=== PATIENT | female | born 1945 | race Hispanic/Latino ===

== ENCOUNTER 2019-05-30 11:56 | Emergency (ER) | payer OTHER ==
--- OUTSIDE RECORDS SUMMARY | 2019-05-30 11:58 | XMS REPORT ---
:1945 Author Organization [facility] Address [address] [place] [address] Dr. Amaya [address] [place] [id number] Care Team Providers Name Role Phone Unavailable Unavailable Unavailable Problems This patient has no known problems. Allergies, Adverse Reactions, Alerts This patient has no known allergies or adverse reactions. Medications This patient has no known medications.
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
[2019-05-30 13:37] VITALS: BP 141/66; TEMP 97.6; O2SAT 96
== END 2019-05-30 13:33 | disposition home or self-care (01) ==
LOC: ER 11:56
DX: T21.22XA Burn of second degree of abdominal wall, initial encounter (principal); T31.0 Burns involving less than 10% of body surface; X10.0XXA Contact with hot drinks, initial encounter; Y93.89 Activity, other specified; Y92.9 Unspecified place or not applicable; Z91.09 Other allergy status, other than to drugs and biological substances; Z91.018 Allergy to other foods; E11.9 Type 2 diabetes mellitus without complications; I10 Essential (primary) hypertension
CPT/HCPCS: 99282

== ENCOUNTER 2021-06-10 19:38 | Observation (INO) | payer OTHER ==
--- OUTSIDE RECORDS SUMMARY | 2021-06-10 19:40 | XMS REPORT | Continuity of Care Document ---
:1945 Author Organization [facility] t Address [facility] [address] [place] [address] Care Team Providers Name Role Phone CONNOR LEONARD Attending Clinician Unavailable MARYCRUZ BALES Attending Clinician Unavailable MD RUBIN MURPHY Attending Clinician Unavailable Lab, Fam Pob I Attending Clinician Unavailable Jhon ROSSI Attending Clinician JHON Attending Clinician Unavailable Doctor Unassigned, Name Attending Clinician Unavailable ARIELLA RAMIRES Attending Clinician Unavailable LES Attending Clinician Unavailable JANEL Attending Clinician Unavailable Lab, Covid Attending Clinician Unavailable BHARAT Attending Clinician Unavailable Bharat CARD SERVICES SPECIALIST Attending Clinician Raju_P Attending Clinician Unavailable JEFFREY Admitting Clinician Unavailable MD LAUREN MURPHY Admitting Clinician Unavailable North Admitting Clinician Unavailable Payers Payer Name Policy Type Policy Number Effective Date Expiration Date S ource MEDICARE [place]: [id number] 2010 [employer] ([employer]) 00:00:00 AETNA [id number] 2000 00:00:00 Problems Condition Condition Condition Status Onset Resolution Last Treating Co mments Source Name Details Category Date Date Treatment Clinician Date Hand pain, Hand pain, Disease Active U nivers right right 4-15 ity of 00:00: [place] [facility] Shoulder Shoulder Disease Active Unive rs pain, left pain, left 4-15 it y of 00:00: [place] [facility] Anxiety Anxiety Disease Active Univers attack attack 2-27 ity of 00:00: [place] [facility] Allergies, Adverse Reactions, Alerts Allergy Allergy Status Severity Reaction(s) Onset Inactive Treating Comm ents Source Name Type Date Date Clinician Honey Propensi Active Hives Univers ty to 5-18 ity of adverse 00:00: [place] reaction 00 Medical s Branch HONEY DRUG Active Hives 2017- Univers INGREDI 5-18 ity of 00:00: [place] 00 [facility] Iodine Propensi Active Itching 2015- Univers ty to 4-06 ity of adverse 00:00: [place] reaction 00 Medical s Branch IODINE DRUG Active ITCHING 2015- Univers INGREDI 4-06 ity of 00:00: [place] 00 [facility] Social History Social Habit Start Date Stop Date Quantity Comments Source Exposure to Yes [facility] SARS-CoV-2 [place] [facility] (event) Branch Tobacco use and 2017-12-10 2017-12-10 Never used Universit y of exposure 00:00:00 00:00:00 [facility] Branch Alcohol intake 2017-12-10 2017-12-10 Current University of 00:00:00 00:00:00 non-drinker of [facility] alcohol Branch (finding) Sex Assigned At [birth year] Universit y of 00:00:00 00:00:00 [facility] Branch Smoking Status Start Date Stop Date Source Never smoker [facility] Medications Ordered Filled Start Stop Current Ordering Indication Dosage Frequency Signature Comments Components Source Medication Medication Date Date Medication? Clinician (SIG) Name Name diclofenac 2019-0 Yes 50mg Take 1 Unive rs 50 mg 2-06 tablet by ity of tablet 00:00: mouth 3 (three) Medical times Branch daily. diclofenac 2019-0 Yes 50mg Take 1 Unive rs 50 mg 2-06 tablet by ity of tablet 00:00: mouth 3 (three) Medical times Branch daily. diclofenac 2019-0 Yes 50mg Take 1 Unive rs 50 mg 2-06 tablet by ity of tablet 00:00: mouth 3 [place] (three) Medical times Branch daily. diclofenac 2019-0 Yes 50mg Take 1 Unive rs 50 mg 2-06 tablet by ity of tablet 00:00: mouth 3 [place] (three) Medical times Branch daily. diclofenac 2019-0 Yes 50mg Take 1 Unive rs 50 mg 2-06 tablet by ity of tablet 00:00: mouth 3 [place] (three) Medical times Branch daily. diclofenac 2019-0 Yes 50mg Take 1 Unive rs 50 mg 2-06 tablet by ity of tablet 00:00: mouth 3 [place] (three) Medical times Branch daily. fexofenadin 2018-0 Yes 180mg Take 180 U nivers e (ALLERGY 6-20 mg by ity of RELIEF, 15:25: mouth [place] FEXOFENADIN 35 daily. Medica l E,) 180 mg Branch tablet fexofenadin 2018-0 Yes 180mg Take 180 U nivers e (ALLERGY 6-20 mg by ity of RELIEF, 15:25: mouth [place] FEXOFENADIN 35 daily. Medica l E,) 180 mg Branch tablet fexofenadin 2018-0 Yes 180mg Take 180 U nivers e (ALLERGY 6-20 mg by ity of RELIEF, 15:25: mouth [place] FEXOFENADIN 35 daily. Medica l E,) 180 mg Branch tablet fexofenadin 2018-0 Yes 180mg Take 180 U nivers e (ALLERGY 6-20 mg by ity of RELIEF, 15:25: mouth [place] FEXOFENADIN 35 daily. Medica l E,) 180 mg Branch tablet fexofenadin 2017-0 Yes 180mg Take 180 U nivers e (ALLERGY 6-20 mg by ity of RELIEF, 15:25: mouth [place] FEXOFENADIN 35 daily. Medica l E,) 180 mg Branch tablet fexofenadin 2017-0 Yes 180mg Take 180 U nivers e (ALLERGY 6-20 mg by ity of RELIEF, 15:25: mouth [place] FEXOFENADIN 35 daily. Medica l E,) 180 mg Branch tablet escitalopra 2015-0 Yes 20mg Take 20 mg Univers m oxalate 3-15 by mouth ity of (LEXAPRO) 00:00: daily. [place] 20 mg 00 Medical tablet Branch losartan-hy 2015-0 Yes 1{tbl} Take 1 Tab Univers drochloroth 3-15 by mouth. ity of iazide 00:00: [place] (HYZAAR) 00 Medical 100-25 mg Branch per tablet escitalopra 2015-0 Yes 20mg Take 20 mg Univers m oxalate 3-15 by mouth ity of (LEXAPRO) 00:00: daily. [place] 20 mg 00 Medical tablet Branch losartan-hy 2015-0 Yes 1{tbl} Take 1 Tab Univers drochloroth 3-15 by mouth. ity of iazide 00:00: [place] (HYZAAR) 00 Medical 100-25 mg Branch per tablet escitalopra 2015-0 Yes 20mg Take 20 mg Univers m oxalate 3-15 by mouth ity of (LEXAPRO) 00:00: daily. [place] 20 mg 00 Medical tablet Branch losartan-hy 20160 Yes 1{tbl} Take 1 Tab Univers drochloroth 3-15 by mouth. ity of iazide 00:00: [place] (HYZAAR) 00 Medical 100-25 mg Branch per tablet escitalopra 2016-0 Yes 20mg Take 20 mg Univers m oxalate 3-15 by mouth ity of (LEXAPRO) 00:00: daily. [place] 20 mg 00 Medical tablet Branch losartan-hy 0 Yes 1{tbl} Take 1 Tab Univers drochloroth 3-15 by mouth. ity of iazide 00:00: [place] (HYZAAR) 00 Medical 100-25 mg Branch per tablet escitalopra 20160 Yes 20mg Take 20 mg Univers m oxalate 3-15 by mouth ity of (LEXAPRO) 00:00: daily. [place] 20 mg 00 Medical tablet Branch losartan-hy 0 Yes 1{tbl} Take 1 Tab Univers drochloroth 3-15 by mouth. ity of iazide 00:00: [place] (HYZAAR) 00 Medical 100-25 mg Branch per tablet escitalopra 2016-0 Yes 20mg Take 20 mg Univers m oxalate 3-15 by mouth ity of (LEXAPRO) 00:00: daily. [place] 20 mg 00 Medical tablet Branch losartan-hy 0 Yes 1{tbl} Take 1 Tab Univers drochloroth 3-15 by mouth. ity of iazide 00:00: [place] (HYZAAR) 00 Medical 100-25 mg Branch per tablet Procedures Procedure Date / Time Performed Performing Clinician [facility] e ASSIGNMENT OF BENEFITS 2021-01-21 21:30:38 Doctor Unassigned, No [facility] Name Medical Branch Encounters Start End Encounter Admission Attending Care Care Encounter Source Date/Time Date/Time Type Type Clinicians Facility Department ID 2021-04-22 2021-04-22 Outpatient [facility] [id number] [place] 00:00:00 00:00:00 CONNOR [address] 2021-02-28 2021-02-28 Outpatient [facility] [id number] [place] 00:00:00 00:00:00 CONNOR [address] 2021-01-27 2021-02-13 Inpatient AMAIRANI, [facility] [id number] [place] 00:00:00 00:00:00 JOEL 500 Method i 2021-01-24 2021-01-24 Outpatient [facility] [id number] [place] 00:00:00 00:00:00 471 Method i 2021-01-21 2021-01-21 Laboratory Lab, Adc Fam Pob I [facility] 1.2. 840.114 [id number] Univers 16:33:00 16:53:00 Only Josephine Ferreira [facility] [id number] ity of [place] [id number] Mehrdad as Professio [phone] De dic[address] Office [facility] One 2021-01-21 2021-01-21 Outpatient R [facility] [id number] Univers 16:20:00 16:20:00 [id number] ity [facility] 2021-01-21 2021-01-21 Outpatient O JHON [facility] [id number] Univers 16:20:00 16:20:00 [facility] 2021-01-21 2021-01-21 Orders Doctor FERNY [id number] Univers 00:00:00 00:00:00 Only Unassigned, BHAVANA [id number] ity of [facility] [id number] Mehrdad as [phone] [address] 2021-01-04 2021-01-04 Outpatient ARIELLA VON [facility] [id number] [place] 00:00:00 00:00:00 FEI, 596 Meth bukc GRACIELA 2021-01-01 2021-01-01 Outpatient LES, [facility] [id number] [place] 00:00:00 00:00:00 ALINA 078 Method i 2020-12-25 2020-12-25 Outpatient JANEL, [facility] [id number] [place] 00:00:00 00:00:00 MEMO 770 Method i 2020-10-31 2020-10-31 Letter Lab, Pcp [facility] [id number] Univers 00:00:00 00:00:00 (Out) [facility] [id number] it y of [place] [id number] Mehrdad as Professio [phone] De dic[address] One 2020-10-24 2020-10-24 Outpatient R [facility] [id number] Univers 13:00:00 13:00:00 [id number] ity [facility] 2020-10-24 2020-10-24 [facility] [id number] Univers 13:00:00 13:00:00 MARGIE ity [facility] 2020-10-24 2020-10-24 Laboratory Lab, Adc Fam Pob I [facility] 1.2. 840.114 [id number] Univers 12:11:43 12:31:43 Only Bharat [facility] [id number] ity of [place] [id number] Mehrdad as Professio [phone] De dical nal [address] [place] [address] One 2020-10-24 2020-10-24 Letter Doctor ISAACS [id number] Univers 00:00:00 00:00:00 (Out) Unassigned, BHAVANA [id number] ity of [facility] [id number] Mehrdad as [phone] [address] 2020-10-24 2020-10-24 Letter Doctor FERNY [id number] Univers 00:00:00 00:00:00 (Out) Unassigned, BHAVANA [id number] ity of [facility] [id number] Mehrdad as [phone] [address] 2020-10-23 2020-10-23 Outpatient JANEL, [facility] [id number] [place] 00:00:00 00:00:00 MEMO 181 Method i 2020-10-23 2020-10-23 Outpatient MUTINDIO, [facility] [id number] [place] 00:00:00 00:00:00 CONNOR 134 Method i 2020-10-17 2020-10-17 Outpatient JANEL, [facility] [id number] [place] 00:00:00 00:00:00 MEMO [address] 2020-10-17 2020-10-17 Outpatient JANEL, [facility] [id number] [place] 00:00:00 00:00:00 MEMO [address] 2020-10-10 2020-10-10 Outpatient JANEL, [facility] [id number] [place] 00:00:00 00:00:00 MEMO 412 Method i 2020-10-10 2020-10-10 Outpatient JANEL, [facility] [id number] [place] 00:00:00 00:00:00 MEMO 663 Method i 2020-10-01 2020-10-01 Outpatient MUTHUSWAMY, [facility] [id number] [place] 00:00:00 00:00:00 CONNOR 096 Method i 2020-09-17 2020-09-17 Outpatient MUTHUSWAMY, [facility] [id number] [place] 00:00:00 00:00:00 CONNOR 679 Method i 2020-06-18 2020-06-18 Outpatient MUTHUSWAMY, [facility] [id number] [place] 00:00:00 00:00:00 CONNOR 912 Method i 2020-02-15 2020-02-15 Outpatient MUTHUSWAMY, [facility] [id number] [place] 00:00:00 00:00:00 CONNOR 361 Method i 2019-08-16 2019-08-16 Outpatient MUTHUSWAMY, [facility] [id number] [place] 00:00:00 00:00:00 CONNOR 038 Method i 2017-10-14 2017-10-14 Outpatient Raju_P [facility] [id number] [place] 04:34:00 04:34:00 [facility] 2017-10-14 2017-10-14 Outpatient Raju_P [facility]G [id number] [place] 04:34:00 04:34:00 [facility] Results Test Description Test Time Test Comments Results Result Comments Source SARS-CoV-2 (COVID-19) RNA [Presence] in Respiratory sp ecimen by 2021-01-28 03:56:52 RHYS with probe detection Test Item Value Reference Range Interpretation Comme nts SARS-CoV-2 (COVID-19) RNA [Presence] in Respiratory Detected No t-Detected specimen by RHYS with probe detection (test code = 86685-5) Whether patient is employed in a healthcare setting (test code = 97942-7) Whether the patient has symptoms related to condition of interest (test code = 86719-6) Patient was hospitalized because of this condition (test code = 65472-7) Whether the patient was admitted to intensive care unit (ICU) for condition of interest (test code = 87215-4) Whether patient resides in a congregate care setting (test code = 67393-2)
[2021-06-10 20:57] LABS: Absolute Lymphocytes (CBC) 1.4 K/uL (0.7-4.9); Hematocrit 39.1 % (36.0-45.0); Lymphocytes % 14.8 % (15.3-44.8); MPV 9.3 fL (7.6-11.3); RBC Red Blood Cell Count 4.42 M/uL (3.86-4.86)
[2021-06-10 20:58] LABS: Protime INR 1.07
[2021-06-10 21:13] LABS: ALT/SGPT 107 U/L (12-78); AST/SGOT 123 U/L (15-37); Albumin 3.2 g/dL (3.4-5.0); Alkaline Phosphatase 77 U/L (45-117); BUN Blood Urea Nitrogen 17 mg/dL (7-18); Bicarbonate 29 mmol/L (21-32); Bilirubin Direct 0.2 mg/dL (0-0.2); Bilirubin Total 0.5 mg/dL (0.2-1.0); Glucose Level 145 mg/dL (74-106); NT PRO-BNP 266 pg/mL (<450); Potassium 3.1 mmol/L (3.5-5.1); Protein, Total 7.7 g/dL (6.4-8.2); Sodium Level 141 mmol/L (136-145); Troponin (Emerg Dept Use Only) < 0.02 ng/mL (0.0-0.045)
--- NOTE | 2021-06-10 21:46 | RAD REPORT ---
EXAM DESCRIPTION: RAD - Chest Single View - 06/10/2021 8:36 pm CLINICAL HISTORY: CHEST PAIN COMPARISON: October 2016 TECHNIQUE: AP portable chest image was obtained 06/10/2021 8:36 pm . FINDINGS: Prominent interstitial lung pattern present increased over baseline 2017 appearance. This could be a viral infiltrate or interstitial edema. No focal mass or consolidation. Heart and vasculat ure are normal. No measurable pleural effusion and no pneumothorax. No acute bony abnormality seen. N o acute aortic findings suspected. IMPRESSION: Viral infiltrate or interstitial edema pattern superimposed on chronic lung pattern.
--- NOTE | 2021-06-10 22:36 | EDPHYS ---
Physician Documentation [facility] Name: Derrek Lopez Age: 76 yrs Sex: Female : 1945 Arrival Date: 06/10/2021 Time: 19:41 Bed 23 Private MD: ED Physician Tristen Fragoso HPI: 06/10 20:10 This 76 yrs old Female presents to ER via EMS with complaints of Passed out. kdr 20:10 The patient has experienced syncope, became unresponsive, collapsed. Onset: The kdr symptoms/episode began/occurred suddenly, just prior to arrival. Duration: This was a single episode, that lasted an unknown period of time. Context: the episode(s) was witnessed, by family, occurred at home, occurred while the patient was sitting, Just prior to the episode the patient experienced no apparent symptoms. Associated injury: The patient did not suffer any apparent associated injury, Other: Patient states that her son who is a "big boy" did CPR on her for a few minutes. Now she complains of mild chest discomfort despite the fact that she is a "big woman". Associated signs and symptoms: Pertinent positives: chest pain, Chest pain with breathing and movement. Current symptoms: Generalized weakness and chest pain with movement and breathing. The patient has not experienced similar symptoms in the past. The patient has not recently seen a physician. Patient and her were in the hospital at [facility] for approximately a month and a half with Covid. Since then she has not felt well but generally has been able to resume her duties. He states that when she goes to the store she does not go in but rather sits in the vehicle due to her overall weakened state. Today she was watching a TV show when she suddenly lost consciousness and rolled out onto the ground. She states that her son had performed CPR briefly but otherwise the exam was unremarkable. Historical: - Allergies: 19:55 HONEY; sv1 19:55 Iodine; sv1 - Home Meds: 19:55 escitalopram oxalate Oral [Active]; Metformin Oral [Active]; valsartan Oral [Active]; sv1 - PMHx: 19:55 Depression; Diabetes - NIDDM; Hypertension; sv1 - Immunization history:: Adult Immunizations up to date. - Social history:: Smoking status: unknown. ROS: 20:10 Constitutional: Negative for fever, chills, and weight loss, Eyes: Negative for injury, kdr pain, redness, and discharge, ENT: Negative for injury, pain, and discharge, Neck: Negative for injury, pain, and swelling, Respiratory: Negative for shortness of breath, cough, wheezing, and pleuritic chest pain, Abdomen/GI: Negative for abdominal pain, nausea, vomiting, diarrhea, and constipation, Back: Negative for injury and pain, : Negative for injury, bleeding, discharge, and swelling, MS/Extremity: Negative for injury and deformity, Skin: Negative for injury, rash, and discoloration, Psych: Negative for depression, anxiety, suicide ideation, homicidal ideation, and hallucinations, Allergy/Immunology: Negative for hives, rash, and allergies, Endocrine: Negative for neck swelling, polydipsia, polyuria, polyphagia, and marked weight changes, Hematologic/Lymphatic: Negative for swollen nodes, abnormal bleeding, and unusual bruising. 20:10 Cardiovascular: Positive for chest pain, with cough, with movement, of the mid-sternal area, Negative for edema, orthopnea, palpitations, paroxysmal nocturnal dyspnea. 20:10 Neuro: Positive for syncope, weakness, The patient has been generally weak since she recovered from Covid few weeks ago, Negative for altered mental status, dizziness, gait disturbance, headache, hearing loss, numbness, seizure activity, speech changes, tingling, tinnitus, tremor, visual changes, acute changes. Exam: 20:10 Constitutional: This is a well developed, well nourished patient who is awake, alert, kdr and in no acute distress. Head/Face: Normocephalic, atraumatic. Eyes: Pupils equal round and reactive to light, extra-ocular motions intact. Lids and lashes normal. Conjunctiva and sclera are non-icteric and not injected. Cornea within normal limits. Periorbital areas with no swelling, redness, or edema. Neck: Trachea midline, no thyromegaly or masses palpated, and no cervical lymphadenopathy. Supple, full range of motion without nuchal rigidity, or vertebral point tenderness. No Meningismus. Chest/axilla: Normal chest wall appearance and motion. Nontender with no deformity. No lesions are appreciated. Respiratory: Lungs have equal breath sounds bilaterally, clear to auscultation and percussion. No rales, rhonchi or wheezes noted. No increased work of breathing, no retractions or nasal flaring. Abdomen/GI: Soft, non-tender, with normal bowel sounds. No distension or tympany. No guarding or rebound. No evidence of tenderness throughout. Back: No spinal tenderness. No costovertebral tenderness. Full range of motion. Skin: Warm, dry with normal turgor. Normal color with no rashes, no lesions, and no evidence of cellulitis. MS/ Extremity: Pulses equal, no cyanosis. Neurovascular intact. Full, normal range of motion. Neuro: Awake and alert, GCS 15, oriented to person, place, time, and situation. Cranial nerves II-XII grossly intact. Motor strength 5/5 in all extremities. Sensory grossly intact. Cerebellar exam normal. Normal gait. Psych: Awake, alert, with orientation to person, place and time. Behavior, mood, and affect are within normal limits. 20:10 Cardiovascular: Rate: normal, Rhythm: regular, Pulses: weak, Heart sounds: normal, Edema: is not appreciated, Patient was noted on the monitor to have a intermittent rate in the 40s. Vital Signs: 19:51 BP 87 / ???; sv1 19:51 BP 87 / 46; Pulse 78; Resp 34; Temp 98.1; Pulse Ox 100% 0 lpm ; sv1 21:11 BP 93 / 60; Pulse 76; Resp 16; Pulse Ox 100% 0 lpm ; sv1 21:48 BP 98 / 49; Pulse 78; Resp 17; Pulse Ox 100% 0 lpm ; sv1 06/11 00:08 BP 126 / 70; Pulse 65; Resp 16; Pulse Ox 100% 0 lpm ; Pain 0/10; sv1 MDM: 06/10 20:10 Data reviewed: vital signs, nurses notes, lab test result(s), EKG, radiologic studies. kdr Counseling: I had a detailed discussion with the patient and/or guardian regarding: the historical points, exam findings, and any diagnostic results supporting the discharge/admit diagnosis, lab results, radiology results, the need for further work-up and treatment in the hospital. 22:35 Patient medically screened. kdr 06/10 20:00 Order name: Basic Metabolic Panel; Complete Time: 21:19 kdr 06/10 20:00 Order name: CBC with Diff; Complete Time: : kdr 06/10 20:00 Order name: LFT's; Complete Time: 21:19 kdr 06/10 20:00 Order name: Magnesium; Complete Time: 21:19 kdr 06/10 20:00 Order name: NT PRO-BNP; Complete Time: 21:19 kdr 06/10 20:00 Order name: PT-INR; Complete Time: 21:19 kdr 06/10 20:00 Order name: Troponin (emerg Dept Use Only); Complete Time: 21:19 kdr 06/10 20:00 Order name: XRAY Chest (1 view); Complete Time: 22:12 kdr 06/10 20:11 Order name: Glucose, Ancillary Testing; Complete Time: 21:19 EDMS 06/10 22:01 Order name: Head C Spine Cap Wo Con EDMS 06/10 22:15 Order name: COVID-19 SARS RT PCR (Document "Date of Onset" if Symptomatic); Complete lp1 Time: 23:38 06/10 20:00 Order name: EKG; Complete Time: 20:01 kdr 06/10 20:00 Order name: Cardiac monitoring; Complete Time: 20:06 kdr 06/10 20:00 Order name: EKG - Nurse/Tech kdr 06/10 20:00 Order name: IV Saline Lock; Complete Time: 20:27 kdr 06/10 20:00 Order name: Labs collected and sent; Complete Time: 20:27 kdr 06/10 20:00 Order name: O2 Per Protocol; Complete Time: 20:27 kdr 06/10 20:00 Order name: O2 Sat Monitoring; Complete Time: 20:27 kdr Administered Medications: 20:27 Drug: NS 0.9% 500 ml Route: IV; Rate: bolus; Site: left hand; sv1 21:14 Follow up: IV Status: Completed infusion; IV Intake: 500ml sv1 23:49 Drug: NS 0.9% 1000 ml Route: IV; Rate: 100 ml/hr; Site: right antecubital; sv1 06/11 00:10 Follow up: Response: No adverse reaction sv1 06/10 23:50 Drug: NS 0.9% 500 ml Route: IV; Rate: bolus; Site: right antecubital; sv1 06/11 00:11 Follow up: Response: No adverse reaction sv1 06/10 23:59 Drug: Potassium Effervescent Tablet 50 mEq Route: PO; sv1 06/11 00:11 Follow up: Response: No adverse reaction sv1 06/10 23:59 Drug: Tylenol 650 mg Route: PO; sv1 06/11 00:11 Follow up: Response: Pain is decreased sv1 Disposition Summary: 06/10/21 22:35 Hospitalization Ordered Hospitalization Status: Observation kdr Provider: Sathya Garcia Location: Telemetry/MedSurg (observation) kdr Condition: Fair kdr Problem: new kdr Symptoms: have improved kdr Bed/Room Type: Standard kdr Room Assignment: 212(06/10/21 23:37) mw Diagnosis - Syncope Near kdr Forms: - Medication Reconciliation Form kdr - SBAR form kdr Signatures: Dispatcher [employer] EDMS Dee Dee Spicer RN RN mw Tristen Fragoso MD MD kdr Jessi Jamison RN RN lp1 Nathaniel Burgess, BILINGUAL CALL CENTER REPRESENTATIVE-C BILINGUAL CALL CENTER REPRESENTATIVE-Cla1 Rik Lewis RN RN sv1 Corrections: (The following items were deleted from the chart) 06/10 22:01 20:01 Head C Spine CAP W Con+CT.RAD.BRZ ordered. EDMS EDMS 23:37 22:35 kdr mw
--- NOTE | 2021-06-10 22:36 | ER ---
Nurse's Notes [facility] Name: Derrek Lopez Age: 76 yrs Sex: Female : 1945 Arrival Date: 06/10/2021 Time: 19:41 Bed 23 Private MD: Diagnosis: Syncope Near Presentation: 06/10 19:53 Chief complaint: Patient states: she feels weak and has fainted. She feels very weak. sv1 AAO x 4. follows commands and is perrla. The provider is at the bedside. Coronavirus screen: At this time, the client does not indicate any symptoms associated with coronavirus-19. Ebola Screen: No symptoms or risks identified at this time. Initial Sepsis Screen: Does the patient meet any 2 criteria? No. Patient's initial sepsis screen is negative. Initial Sepsis Screen: Does the patient have a suspected source of infection? No. Patient's initial sepsis screen is negative. Risk Assessment: Do you want to hurt yourself or someone else? Patient reports no desire to harm self or others. Onset of symptoms was June 10, 2021 at 19:00. 19:53 Method Of Arrival: EMS: [facility] sv1 19:53 Acuity: GIGI 2 sv1 Triage Assessment: 19:55 General: Appears distressed, uncomfortable, well groomed. Pain: Denies pain. sv1 06/11 00:11 General: Behavior is calm, cooperative, appropriate for age. sv1 Historical: - Allergies: 06/10 19:55 HONEY; sv1 19:55 Iodine; sv1 - Home Meds: 19:55 escitalopram oxalate Oral [Active]; Metformin Oral [Active]; valsartan Oral [Active]; sv1 - PMHx: 19:55 Depression; Diabetes - NIDDM; Hypertension; sv1 - Immunization history:: Adult Immunizations up to date. - Social history:: Smoking status: unknown. Screenin/21 00:03 Abuse screen: none. Nutritional screening: No deficits noted. Tuberculosis screening: sv1 No symptoms or risk factors identified. Fall Risk Secondary diagnosis (15 points) IV access (20 points). Ambulatory Aid- Furniture (30 pts.). Mental Status- Oriented to own ability (0 pts). Total Lepe Fall Scale indicates Low Risk Score (25-44 pts). Fall prevention measures have been instituted. Side Rails Up X 2 Placed close to Nursing Station. Assessment: 00:03 Reassessment: All labs and radiology completed. The patient is to be admitted to room sv1 212. nurse Wang CALI is accepting the patient. Report was called. . Vital Signs: 06/10 19:51 BP 87 / ???; sv1 19:51 BP 87 / 46; Pulse 78; Resp 34; Temp 98.1; Pulse Ox 100% 0 lpm ; sv1 21:11 BP 93 / 60; Pulse 76; Resp 16; Pulse Ox 100% 0 lpm ; sv1 21:48 BP 98 / 49; Pulse 78; Resp 17; Pulse Ox 100% 0 lpm ; sv1 06/11 00:08 BP 126 / 70; Pulse 65; Resp 16; Pulse Ox 100% 0 lpm ; Pain 0/10; sv1 ED Course: 06/10 19:41 Patient arrived in ED. mw2 19:51 Tristen Fragoso MD is Attending Physician. kdr 19:51 Rik Lewis RN is Primary Nurse. sv1 19:51 Arm band placed on right wrist. sv1 19:55 Triage completed. sv1 20:27 CBC with Diff Sent. sv1 20:28 LFT's Sent. sv1 20:28 Magnesium Sent. sv1 20:28 NT PRO-BNP Sent. sv1 20:28 PT-INR Sent. sv1 20:28 Troponin (emerg Dept Use Only) Sent. sv1 20:36 XRAY Chest (1 view) In Process Unspecified. EDMS 21:00 Basic Metabolic Panel Sent. sv1 21:00 CBC with Diff Sent. sv1 21:00 LFT's Sent. sv1 21:01 Magnesium Sent. sv1 21:01 NT PRO-BNP Sent. sv1 21:01 Troponin (emerg Dept Use Only) Sent. sv1 22:03 Head C Spine Cap Wo Con In Process Unspecified. EDMS 22:35 Sathya Garcia DO is Hospitalizing Provider. kdr 23:35 COVID-19 SARS RT PCR (Document "Date of Onset" if Symptomatic) Sent. sv1 06/11 00:03 Patient has correct armband on for positive identification. Bed in low position. Call sv1 light in reach. Side rails up X2. 00:03 No provider procedures requiring assistance completed. Maintain EMS IV. Dressing sv1 intact. Converted IV to saline lock on left hand. 00:12 Flushed right antecubital sv1 Administered Medications: 06/10 20:27 Drug: NS 0.9% 500 ml Route: IV; Rate: bolus; Site: left hand; sv1 21:14 Follow up: IV Status: Completed infusion; IV Intake: 500ml sv1 23:49 Drug: NS 0.9% 1000 ml Route: IV; Rate: 100 ml/hr; Site: right antecubital; sv1 06/11 00:10 Follow up: Response: No adverse reaction sv1 06/10 23:50 Drug: NS 0.9% 500 ml Route: IV; Rate: bolus; Site: right antecubital; sv1 06/11 00:11 Follow up: Response: No adverse reaction sv1 06/10 23:59 Drug: Potassium Effervescent Tablet 50 mEq Route: PO; sv1 06/11 00:11 Follow up: Response: No adverse reaction sv1 06/10 23:59 Drug: Tylenol 650 mg Route: PO; sv1 06/11 00:11 Follow up: Response: Pain is decreased sv1 Intake: 06/10 21:14 IV: 500ml; Total: 500ml. sv1 Outcome: 22:35 Decision to Hospitalize by Provider. kdr 06/11 00:03 Admitted to Med/surg accompanied by thi, via stretcher, Report called to Wang CALI sv1 Condition: improved Instructed on the need for admit. 00:37 Patient left the ED. sv1 Signatures: Dispatcher [employer] EDMS Tristen Fragoso MD MD [facility] Rik Lewis RN RN sv1
--- NOTE | 2021-06-10 22:50 | P.HP ---
Certification for Inpatient Patient admitted to: Observation Patient will require the following post-hospital care: None Practitioner: I am a practitioner with admitting privileges, knowledge of patient current condition, hospital course, and medical plan of care. Services: Services provided to patient in accordance with Admission requirements found in Title 42 Section 412.3 of the Code of Federal Regulations Patient History Date of Service: 06/10/21 Primary Care Provider: Reyes Barajas Reason for admission: Syncope History of Present Illness: 76-year-old female with history of hypertension, diabetes mellitus type 2, depression presents the emergency department for syncope. Patient was at home watching TV with her family when she suddenly became unresponsive and collapsed. Family reports checking for pulse and could not find 1, performed CPR for 2 to 3 minutes, patient awakened after this. Patient presents the emergency department awake, alert and oriented x4 but hypotensive with periods of bradycardia down to the 40s. Patient was started on IV fluids heart rate quickly improved initial EKG with prolonged QT QTC 499. Patient does also take Lexapro at home. Patient also noted to have systolic murmur which she is being evaluated for by Jenn, reports there is been some discussion about a procedure related to her valve that unsure which valve or what procedure. Labs are significant for potassium 3.1 glucose 145 AST 123 ALT 107 chest x-ray unremarkable, CT chest abdomen pelvis without contrast pending. Patient does report history of Covid prolonged hospitalization previously. At this time patient complaining of pain in her chest with inspiration stating this is related to having chest compressions performed on her. Will admit for further evaluation and management. Allergies honey Allergy (Unverified 11/14/16 19:25) Unknown iodine Allergy (Unverified 11/14/16 19:25) Unknown - Past Medical/Surgical History -: Hypertension -: diabetes mellitus type 2 -: Depression -: Cholecystectomy -: Appendectomy -: Bladder sling -: Hysterectomy Psychosocial/ Personal History: Patient is retired, lives at home with family - Family History Sister -: Kidney disease - Social History Smoking Status: Never smoker Alcohol use: No CD- Drugs: No Caffeine use: Yes Place of Residence: Home Review of Systems 10-point ROS is otherwise unremarkable Cardiovascular: Chest Pain, Other (Syncope), As per HPI Physical Examination - Physical Exam General: Alert, In no apparent distress, Oriented x3 HEENT: Atraumatic, PERRLA, Mucous membr. moist/pink, EOMI, Sclerae nonicteric Neck: Supple, 2+ carotid pulse no bruit, No LAD, Without JVD or thyroid abnormality Respiratory: Clear to auscultation bilaterally, Normal air movement Cardiovascular: Regular rate/rhythm, Systolic murmur Capillary refill: <2 Seconds Gastrointestinal: Normal bowel sounds, No tenderness Musculoskeletal: No tenderness Integumentary: No rashes Neurological: Normal speech, Normal strength at 5/5 x4 extr, Normal tone, Normal affect Lymphatics: No axilla or inguinal lymphadenopathy - Studies Laboratory Data (last 24 hrs) 06/10/21 20:20: PT 12.3, INR 1.07 06/10/21 20:20: WBC 9.70, Hgb 12.6, Hct 39.1, Plt Count 242 06/10/21 20:20: Sodium 141, Potassium 3.1 L, BUN 17, Creatinine 0.88, Glucose 145 H, Magnesium 2.0, Total Bilirubin 0.5, AST 123 H, ALT 107 H, Alkaline Phosphatase 77 Assessment and Plan - Plan Assessment: Syncope/collapse with systolic murmur and prolonged QT Diabetes mellitus type 2not insulin-dependent Hypertension Depression Hypokalemia Elevated aminotransferase levels Incidental CT findingseveral pulmonary nodularities up to 1.4 cm Plan: Syncope/collapse with systolic murmur and prolonged QT: Patient reports that she had been told she had a murmur, echocardiogram was performed earlier this year at [facility]. Will attempt to obtain results. As patient presents with significant symptoms including syncope and collapse with suspected cardiac arrest will perform another echocardiogram. Cardiology consulted, patient does take Escitalopram which could contribute to prolonged QT. We will hold this medication. Appreciate further input from cardiology. Diabetes mellitus type 2not insulin-dependent: [facility] Accu-Chek, sliding scale insulin therapy. Hypertension: Obtain and continue medications Depression: Hold escitalopram as it can contribute to prolonged QT. Hypokalemia: Replaced in the ER, protocol in place. Monitor on telemetry. Elevated aminotransferase levels: Suspect fatty liver, will obtain liver ultrasound. Patient with prior cholecystectomy and no abdominal pain at this time. Incidental CT findingseveral pulmonary nodularities up to 1.4 cm: Patient reports that she is aware of previous pulmonary nodules in place, no studies available for comparison. Patient has plans for follow-up with pulmonology on outpatient basis already, instructed to keep appointment and continue with follow-up. DVT PPX: Lovenox Code status: Full Discharge Plan: Home Plan to discharge in: 24 Hours - Advance Directives Does patient have a Living Will: No Does patient have a Durable POA for Healthcare: No - Code Status/Comfort Care Code Status Assessed: Yes (Full code) Critical Care: No Time Spent Managing Pts Care (In Minutes): 55
[2021-06-10] MEDS ORDERED: ACETAMINOPHEN 325 MG TABLET ONE (23:38)
[2021-06-10] MEDS ORDERED: NA CHLORIDE 0.9% 500 ML ONE (23:39)
[2021-06-10] MEDS ORDERED: POTASSIUM 25 MEQ EFFERV TAB ONE (23:39)
[2021-06-10] MEDS ORDERED: NA CHLORIDE 0.9% 1,000 ML ONE (23:39)
[2021-06-11] MEDS ORDERED: ONDANSETRON 4 MG/2 ML VIAL IV PRN (00:02)
[2021-06-11] MEDS: NA CHLORIDE 0.9% 1,000 ML IV SCH ×2 (00:02→09:50)
[2021-06-11] MEDS ORDERED: ACETAMINOPHEN 500 MG TAB PO PRN (00:02)
[2021-06-11 02:18] VITALS: BMI 37.8
[2021-06-11 04:34] LABS: Absolute Lymphocytes (CBC) 1.7 K/uL (0.7-4.9); Hematocrit 35.2 % (36.0-45.0); Lymphocytes % 19.8 % (15.3-44.8); MPV 8.9 fL (7.6-11.3); RBC Red Blood Cell Count 4.01 M/uL (3.86-4.86)
[2021-06-11 05:01] LABS: Albumin 2.9 g/dL (3.4-5.0); Bilirubin Total 0.4 mg/dL (0.2-1.0); Magnesium 1.8 mg/dL (1.8-2.4); Potassium 3.9 mmol/L (3.5-5.1); Protein, Total 6.9 g/dL (6.4-8.2); Thyroid Stimulating Hormone 2.69 uIU/mL (0.360-3.740)
[2021-06-11 06:02] LABS: Urine Appearance CLEAR (Clear); Urine Bilirubin NEGATIVE (Negative); Urine Blood NEGATIVE (Negative); Urine Color YELLOW (Yellow); Urine Glucose NEGATIVE (Negative); Urine Microscopic Reflex ORDER UMIC; Urine Protein NEGATIVE (Negative); Urine pH 6.5 (5.0-7.0)
[2021-06-11 06:08] LABS: Urine Bacteria <20 /HPF (<20); Urine RBC <5 /HPF (NONE SEEN); Urine Urothelial Cells <5 /HPF (NONE SEEN)
--- NOTE | 2021-06-11 06:08 | P.PN ---
Subjective Date of Service: 06/11/21 Primary Care Provider: Reyes Barajas Chief Complaint: Syncope Subjective: Improving, Doing well Physical Examination - Vital Signs Temperature: 97.6 F Blood Pressure: 111/56 Pulse: 66 Respirations: 17 Pulse Ox (%): 95 - Studies Laboratory Data (last 24 hrs) 06/10/21 20:20: PT 12.3, INR 1.07 06/10/21 20:20: WBC 9.70, Hgb 12.6, Hct 39.1, Plt Count 242 06/10/21 20:20: Sodium 141, Potassium 3.1 L, BUN 17, Creatinine 0.88, Glucose 145 H, Magnesium 2.0, Total Bilirubin 0.5, AST 123 H, ALT 107 H, Alkaline Phosphatase 77 Assessment & Plan Discharge Plan: Home Plan to discharge in: 24 Hours Physician Review Additional Text: COVID: negative Liver US: COMPARISON: None FINDINGS: The liver has an increased echotexture. Hepatopetal flow. A lesion is not visualized. The spleen measures 10 centimeters IMPRESSION: Increased hepatic echotexture consistent with fatty infiltration. Unremarkable ultrasound spleen CT scan of Head/Spine/Chest/AB/Pelvis: Mild brain atrophy. No evidence of acute intracranial hemorrhage. No evidence of fracture or subluxation of the C-spine Several pulmonary nodularities are identified within the right and left lung with the largest pulmonary nodule along the posterior segment right upper lobe measuring 1.4 cm. Differential includes metastatic disease and/or infectious process. 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 Small hiatal hernia. Diverticulosis with no evidence of diverticulitis. Small superior endplate compression deformity T12. Degenerative changes to the spine with degenerative grade 1 spondylolisthesis at L4-L5. Physical exam: General: Alert, In no apparent distress, Oriented x3 HEENT: Atraumatic, PERRLA, Mucous membr. moist/pink, EOMI, Sclerae nonicteric Neck: Supple, 2+ carotid pulse no bruit, No LAD, Without JVD or thyroid abnorma lity Respiratory: Clear to auscultation bilaterally, Normal air movement Cardiovascular: Regular rate/rhythm, Systolic murmur Capillary refill: <2 Seconds Gastrointestinal: Normal bowel sounds, No tenderness Musculoskeletal: No tenderness Integumentary: No rashes Neurological: Normal speech, Normal strength at 5/5 x4 extr, Normal tone, Normal affect Lymphatics: No axilla or inguinal lymphadenopathy Assessment: Syncope/collapse with systolic murmur and prolonged QT Diabetes mellitus type 2not insulin-dependent Hypertension Depression Hypokalemia Elevated aminotransferase levels Incidental CT findingseveral pulmonary nodularities up to 1.4 cm Plan: Syncope/collapse with systolic murmur and prolonged QT: Spoke with cardiology in detail. Cardiology recommends echocardiogram to further evaluate. QT was not significantly prolonged. Will discuss with pharmacy to remove any medications that may prolong QT. If echo unremarkable patient can likely be discharged later today with outpatient Holter monitor. Await recommendations by cardiology. Diabetes mellitus type 2not insulin-dependent: Hold Metformin. Patient takes metformin 500 mg 1 pill twice daily. Continue Accu-Cheks and sliding scale. Hypertension: Blood pressure low at this time. Hold valsartan. Patient takes valsartan 160 mg daily. Depression: Hold escitalopram as it can contribute to prolonged QT. Hypokalemia: Replaced in the ER, protocol in place. Monitor on telemetry. Elevated aminotransferase levels: Fatty liver noted at this time. Hold Lipitor 80 mg daily. Consider decreasing medication at discharge. Incidental CT findingseveral pulmonary nodularities up to 1.4 cm: Patient reports that she is aware of previous pulmonary nodules in place, no studies available for comparison. Patient has plans for follow-up with pulmonology on outpatient basis already, instructed to keep appointment and continue with follow-up. DVT PPX: Lovenox Code status: Full code Discharge Plan: Home at discharge. Time Spent Managing Pts Care (In Minutes): 55
[2021-06-11] MEDS: INSULIN -REGULAR HUMAN 50 UNIT/0.5 ML ML SQ SCH ×2 (07:30→11:30)
--- NOTE | 2021-06-11 07:35 | EKG ---
Test Date: 2021-06-10 Test Time: 20:14:23 Dinkey Driver: LINDA MEASUREMENT RESULTS: Intervals: Rate: 76 WV: 188 QRSD: 88 QT: 444 QTc: 499 [place]: P: 31 WV: 188 QRS: -22 T: 103 INTERPRETIVE STATEMENTS: Normal sinus rhythm Left ventricular hypertrophy with repolarization abnormality Prolonged QT Abnormal ECG Compared to ECG 11/14/2016 15:19:49 Left ventricular hypertrophy now present Early repolarization now present Prolonged QT interval now present Electronically Signed On 06-11-21 07:34:15 COMMISSIONING MANAGER by Thai Wu
--- NOTE | 2021-06-11 08:34 | RAD REPORT ---
EXAM DESCRIPTION: US - Liver Only - 06/11/2021 1:38 am CLINICAL HISTORY: Elevated liver function test enzymes COMPARISON: None FINDINGS: The liver has an increased echotexture. Hepatopetal flow. A lesion is not visualized. The spleen measures 10 centimeters IMPRESSION: Increased hepatic echotexture consistent with fatty infiltration. Unremarkable ultrasound spleen
[2021-06-11] MEDS ORDERED: ENOXAPARIN 40 MG/0.4 ML SQ SCH (09:00)
[2021-06-11] MEDS ORDERED: POTASSIUM CL SA 10 MEQ TAB PO ONE (09:00)
[2021-06-11] MEDS ORDERED: MAGNESIUM SULFATE 1 gm IVPB 1 GM/100 ML BAG IV ONE (09:00)
--- NOTE | 2021-06-11 12:12 | CON ---
Date of Consultation: 06/11/2021 Reason For Consultation: Syncope. History Of Present Illness: Ms. Lopez is 76. Has had recent COVID. Chest x-ray still shows edema ve rsus viral infiltrate. Had a sudden syncopal episode, prolonged QT on EKG with left ventricular hype rtrophy. Was taking Lexapro, which was discontinued. She also takes Xyzal, metformin, valsartan, Li pitor, and aspirin. She has had no symptoms before her syncope. Has had diaphoresis with minimal ex ertion recently. Denies any chest pain, nausea, vomiting, PND, orthopnea, pedal edema, or palpitatio n. Denied fever or chills. Allergies: SHE IS ALLERGIC TO HONEY AND IODINE. Review of Systems: Negative. Social History: Negative. Family History: Noncontributory. Medications: Listed earlier. Physical Examination: Vital Signs: Stable, afebrile, sinus rhythm. HEENT: Negative. Neck: Supple with no bruit. Chest: Clear to auscultation and percussion. Cardiac: Revealed a regular rhythm and rate. No murmurs, gallops, or rubs. Abdomen: Benign. Extremities: Revealed no clubbing, cyanosis, or edema. Diagnostic Data: Listed earlier. Impression And Plan: Syncope, certainly could be orthostatic hypotension, but may be arrhythmia rela fsih to long QT syndrome and Lexapro. I will stop the Lexapro, get an echocardiogram, monitor her, an d then she can go home after that. We will make further decision depending what the echo shows, but for now, she can go home and we will do a 7-day event monitor on her to rule out any arrhythmia off h er Lexapro. NASRIN/THANG Voice ID: [id number] Report ID: [id number]
[2021-06-11 12:46] VITALS: BP 101/55; TEMP 97
--- NOTE | 2021-06-11 13:01 | P.DS ---
Admission Date: 06/10/21 Discharge Date: 06/11/21 Primary Care Provider: Reyes Barajas Disposition: ROUTINE DISCHARGE Discharge Condition: GOOD Reason for Admission: Syncope Consultations: Cardiology-Dr. Wu Procedures: COVID: negative Liver US: COMPARISON: None FINDINGS: The liver has an increased echotexture. Hepatopetal flow. A lesion is not visualized. The spleen measures 10 centimeters IMPRESSION: Increased hepatic echotexture consistent with fatty infiltration. Unremarkable ultrasound spleen CT scan of Head/Spine/Chest/AB/Pelvis: Mild brain atrophy. No evidence of acute intracranial hemorrhage. No evidence of fracture or subluxation of the C-spine Several pulmonary nodularities are identified within the right and left lung with the largest pulmonary nodule along the posterior segment right upper lobe measuring 1.4 cm. Differential includes metastatic disease and/or infectious process. 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 Small hiatal hernia. Diverticulosis with no evidence of diverticulitis. Small superior endplate compression deformity T12. Degenerative changes to the spine with degenerative grade 1 spondylolisthesis at L4-L5. Echocardiogram: Findings discussed with cardiology. 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 Patient was at home watching TV with her family when she suddenly became unresponsive and collapsed. Family checked for pulse but could not find 1. CPR was performed for about 2 to 3 minutes. Patient awakened thereafter. In the ER patient was evaluated. Patient was hypotensive with periods of bradycardia down to the 40s. This improved with IV fluids. Patient was admitted for further evaluation. Patient reports history of prolonged Covid infection in January. Hospital Course: Patient presented with syncope and collapse. CPR was performed at home. By the time the patient arrived to the ER patient was awake. Patient was found to have low blood pressure and prolonged QT. Patient given IV fluids with improvement. Patient was admitted for further evaluation and treatment. Patient was seen and evaluated by cardiology. Cardiology recommended to discontinue her antidepressant medicationLexapro as this may contribute to prolonged QT. Echocardiogram performed showed moderate aortic stenosis. No clear etiology was identified as the cause of her syncope and collapse. Blood pressures were low upon admission. Blood pressure medication was held during her stay. At discharge patient will continue with her current medication including aspirin 81 mg daily, valsartan 160 mg daily. Recommend follow-up with cardiology within 1 week to follow-up his hospitalization. Cardiology plans for outpatient Holter monitor. Recommend to recheck echocardiogram in 6 to 12 months to monitor her aortic stenosis. Patient with hypertension. Blood pressures were low upon admission. Patient given IV fluids with improvement. Patient takes valsartan 160 mg daily. Medication was held during the course of her stay. At discharge recommend to monitor her blood pressure daily. Recommend to maintain blood pressure less than 130/80. Patient may continue with valsartan 160 mg daily. Recommend to hold medication if blood pressure systolic less than 110. Patient with depression. As mentioned above Lexapro has been discontinued due to prolonged QT. This can be further evaluated by her PCP. Patient with diabetes mellitus type 2. Patient takes metformin 500 mg 1 pill twice daily. Overall stable. At discharge patient may continue with Metformin 500 mg 1 pill twice daily. Recommend to maintain blood sugar less than 140 fasting and less than 200 after meals. Recommend follow-up with PCP to further monitor. Patient with elevated liver function. Liver ultrasound shows fatty liver disease. Liver function improved. Patient takes Lipitor 80 mg daily. Consider decreasing Lipitor to 40 mg daily. This can be further addressed by her PCP and cardiology. Patient may follow-up with GI as an outpatient to further address her fatty liver disease. Patient with hyperlipidemia. Patient takes Lipitor 80 mg daily. LDL 81. Elevated liver function noted. Patient with underlying fatty liver. Considering her elevated liver function and hyperlipidemia will recommend to decrease Lipitor to 40 mg daily. Recommend to recheck labCMP and fasting lipid panel in 2 to 4 weeks to monitor progress. Further adjustment can be done by her PCP. Patient with GERD and hiatal hernia. CT scan revealed small hiatal hernia. At discharge recommend to continue Protonix 40 mg daily. Patient with CT findings of pulmonary nodularities up to 1.4 cm. Patient reports that this is followed as an outpatient. Recommend follow-up with pulmonology as an outpatient to further monitor and address. Patient with history of chronic seasonal allergies. Patient takes Xyzal. Xyzal can contribute to low blood pressure. Recommend to hold Xyzal at this time. Patient did receive chest compressions and CPR at home prior to admission. Patient with some soreness. No evidence of fracture noted on CT scan. Patient may continue with [id number] Tylenol or ibuprofen as needed for pain every 8 hours. Vital Signs/Physical Exam: Temp Pulse Resp BP Pulse Ox 97.0 F 65 16 101/55 L 95 06/11/21 12:00 06/11/21 12:00 06/11/21 12:00 06/11/21 12:06/11/21 12:00 General: Alert, In no apparent distress, Oriented x3, Cooperative HEENT: Atraumatic Neck: Supple Respiratory: Clear to auscultation bilaterally, Normal air movement Cardiovascular: Normal pulses, Regular rate/rhythm Gastrointestinal: Normal bowel sounds, No tenderness, No masses, No rebound, No guarding Musculoskeletal: No erythema, No tenderness, No warmth Integumentary: No tenderness/swelling, No erythema, No cyanosis Neurological: Normal speech, Normal strength at 5/5 x4 extr, Normal tone Laboratory Data at Discharge: WBC 8.80 K/uL (4.3-10.9) 06/11/21 04:10 Hgb 11.5 g/dL (12.0-15.0) L 06/11/21 04:10 Hct 35.2 % (36.0-45.0) L 06/11/21 04:10 Plt Count 236 K/uL (152-406) 06/11/21 04:10 PT 12.3 SECONDS (9.5-12.5) 06/10/21 20:20 INR 1.07 06/10/21 20:20 Sodium 142 mmol/L (136-145) 06/11/21 04:10 Potassium 3.9 mmol/L (3.5-5.1) 06/11/21 04:10 BUN 14 mg/dL (7-18) 06/11/21 04:10 Creatinine 0.73 mg/dL (0.55-1.3) 06/11/21 04:10 Glucose 104 mg/dL (74-106) 06/11/21 04:10 Magnesium 1.8 mg/dL (1.8-2.4) 06/11/21 04:10 Total Bilirubin 0.4 mg/dL (0.2-1.0) 06/11/21 04:10 AST 70 U/L (15-37) H 06/11/21 04:10 ALT 81 U/L (12-78) H 06/11/21 04:10 Alkaline Phosphatase 65 U/L (45-117) 06/11/21 04:10 Troponin I < 0.02 ng/mL (0.0-0.045) 06/11/21 06:02 Triglycerides 98 mg/dL (<150) 06/11/21 04:10 Cholesterol 140 mg/dL (<200) 06/11/21 04:10 HDL Cholesterol 39 mg/dL (40-60) L 06/11/21 04:10 Cholesterol/HDL Ratio 3.59 06/11/21 04:10 Home Medications: Aspirin 81 mg PO DAILY 06/11/21 Atorvastatin Calcium [Lipitor] 40 mg PO DAILY #30 06/11/21 Azelastine [Astelin 137MCG/Metered Cheriton*] 1 sprays NS BID PRN 06/11/21 Metformin HCl 500 mg PO BIDWM 06/11/21 Pantoprazole [Protonix Tab] 40 mg PO DAILY #30 tab 06/11/21 Tetrahydrozoline HCl 1 drop OP DAILY PRN 06/11/21 Valsartan 160 mg PO DAILY 06/11/21 estradioL [Estradiol] 1 appl VAG SEECOM 06/11/21 New Medications: Atorvastatin Calcium [Lipitor] 40 mg PO DAILY #30 Pantoprazole [Protonix Tab] 40 mg PO DAILY #30 tab Physician Discharge Instructions: Patient presented with syncope and collapse. CPR was performed at home. By the time the patient arrived to the ER patient was awake. Patient was found to have low blood pressure and prolonged QT. Patient given IV fluids with improvement. Patient was admitted for further evaluation and treatment. Patient was seen and evaluated by cardiology. Cardiology recommended to discontinue her antidepressant medicationLexapro as this may contribute to prolonged QT. Echocardiogram performed showed moderate aortic stenosis. No clear etiology was identified as the cause of her syncope and collapse. Blood pressures were low upon admission. Blood pressure medication was held during her stay. At discharge patient will continue with her current medication including aspirin 81 mg daily, valsartan 160 mg daily. Recommend follow-up with cardiology within 1 week to follow-up his hospitalization. Cardiology plans for outpatient Holter monitor. Recommend to recheck echocardiogram in 6 to 12 months to monitor her aortic stenosis. Patient with hypertension. Blood pressures were low upon admission. Patient given IV fluids with improvement. Patient takes valsartan 160 mg daily. Medication was held during the course of her stay. At discharge recommend to monitor her blood pressure daily. Recommend to maintain blood pressure less than 130/80. Patient may continue with valsartan 160 mg daily. Recommend to hold medication if blood pressure systolic less than 110. Patient with depression. As mentioned above Lexapro has been discontinued due to prolonged QT. This can be further evaluated by her PCP. Patient with diabetes mellitus type 2. Patient takes metformin 500 mg 1 pill twice daily. Overall stable. At discharge patient may continue with Metformin 500 mg 1 pill twice daily. Recommend to maintain blood sugar less than 140 fasting and less than 200 after meals. Recommend follow-up with PCP to further monitor. Patient with elevated liver function. Liver ultrasound shows fatty liver disease. Liver function improved. Patient takes Lipitor 80 mg daily. Consider decreasing Lipitor to 40 mg daily. This can be further addressed by her PCP and cardiology. Patient may follow-up with GI as an outpatient to further address her fatty liver disease. Patient with hyperlipidemia. Patient takes Lipitor 80 mg daily. LDL 81. Elevated liver function noted. Patient with underlying fatty liver. Con sidering her elevated liver function and hyperlipidemia will recommend to decrease Lipitor to 40 mg daily. Recommend to recheck labCMP and fasting lipid panel in 2 to 4 weeks to monitor progress. Further adjustment can be done by her PCP. Patient with GERD and hiatal hernia. CT scan revealed small hiatal hernia. At discharge recommend to continue Protonix 40 mg daily. Patient with CT findings of pulmonary nodularities up to 1.4 cm. Patient reports that this is followed as an outpatient. Recommend follow-up with pulmonology as an outpatient to further monitor and address. Patient with history of chronic seasonal allergies. Patient takes Xyzal. Xyzal can contribute to low blood pressure. Recommend to hold Xyzal at this time. Patient did receive chest compressions and CPR at home prior to admission. Patient with some soreness. No evidence of fracture noted on CT scan. Patient may continue with [id number] Tylenol or ibuprofen as needed for pain every 8 hours. Diet: ADA Activity: Ad molly Followup: NONE,NONE [Primary Care Provider] - Time spent managing pt's care (in minutes): 55
--- NOTE | 2021-06-11 13:30 | ECHO ---
HEIGHT: 5 ft 2 in WEIGHT: 206 lb 12.8 oz DATE OF STUDY: 06/11/[address]: Nathaniel Burgess NP 2-DIMENSIONAL: YES M.MODE: YES DOPPLER: YES COLOR FLOW: YES TDS: PORTABLE: DEFINITY: BUBBLE STUDY: DIAGNOSIS: SYNCOPE, MURMUR CARDIAC HISTORY: CATHERIZATION: NO SURGERY: NO PROSTHETIC VALVE: NO PACEMAKER: NO MEASUREMENTS (cm) DIASTOLIC (NORMALS) SYSTOLIC (NORMALS) IVSd 1.3 (0.6-1.2) LA Diam 2.9 (1.9-4.0) LVEF 61% LVIDd 3.5 (3.5-5.7) LVIDs 2.3 (2.0-3.5) %FS 32% LVPWd 1.4 (0.6-1.2) Ao Diam 2.7 (2.0-3.7) 2 DIMENSIONAL ASSESSMENT: RIGHT ATRIUM: NORMAL LEFT ATRIUM: NORMAL RIGHT VENTRICLE: NORMAL LEFT VENTRICLE: LEFT VENTRICULAR HYPERTROPHY TRICUSPID VALVE: NORMAL MITRAL VALVE: NORMAL PULMONIC VALVE: NORMAL AORTIC VALVE: STENOTIC PERICARDIAL EFFUSION: NONE AORTIC ROOT: NORMAL LEFT VENTRICULAR WALL MOTION: NORAML DOPPLER/COLOR FLOW: MODERATE AORTIC STNEOSIS 1.0 CENTIMETERS SQUARED COMMENTS: MODERATE AORTIC STENOSIS 1.0 CENTIMETERS SQUARED. NORMAL EJECTON. LEFT VENTRICULAR HYPERTROPHY. TECHNOLOGIST: WILLY SANDOVAL
[2021-06-11 14:43] VITALS: O2SAT 95
--- NOTE | 2021-06-11 15:17 | RAD REPORT ---
EXAM DESCRIPTION: CT - Head C Spine Cap Wo Con - 06/11/2021 6:45 am CLINICAL HISTORY: 76 years, Female, Syncope;Pain COMPARISON: None. FINDINGS: Multiple transaxial tomograms of the brain were obtained from the base of the skull to the vertex without contrast. 2-D multiplanar reformats and the coronal and sagittal plane were performed and reviewed. Multiple axial CT images through the cervical spine were obtained at 2 mm slice thickness at 2 mm int erval reconstruction. In addition 2-D multiplanar reformats and the sagittal coronal plane were perfo rmed and reviewed. Multiple transaxial tomograms of the chest, abdomen and pelvis were performed from the lung apices to the symphysis pubis 5 mm slice thickness at 5 mm interval reconstruction, without administration of IV and oral contrast. Multiplanar reformats in the sagittal and coronal plane were generated and reviewed. This exam was performed according to our departmental dose-optimization protocol, which includes auto mated exposure control, adjustment of the mA and/or kV according to patient size and/or use of iterat martita reconstruction technique. CT head: Brain parenchyma as well as the galicia and white matter differentiation demonstrate to be unre markable. There is mild prominence of the sulci and gyri are corresponding to mild brain atrophy. Min imal cortication is within the basal ganglia. There is no midline shift and/or mass effect. There is no evidence for acute hemorrhage and/or infarction. Lateral ventricles and cisterns displace normal appearance. No intra or extra axial fluid collections were seen. The calvarium is intact with no e vidence for fracture. The visualized portions of the paranasal sinuses and orbits demonstrate to be c lear. CT C-spine: The alignment of the vertebral bodies are normal. There is no evidence of fracture or s ubluxation. There is degenerative disc disease with decreased intervertebral disc height, anterior sp ondylosis and posterior osteophyte complex at C3/C4 C5/C6 C6/C7. Minimal uncovertebral degenerative c hanges C6/C7. The spinal canal demonstrate no evidence for significant stenosis. Neural foramina demo nstrate to be unremarkable. The uncovertebral joints demonstrate to be normal. There is no prevertebr al soft tissue swelling. Minimal carotid bulb artery calcification. Sagittal coronal reformatted imag es demonstrate no subluxation or bony abnormalities. Chest: The lung parenchyma demonstrate dependent atelectatic changes. Decreased lung volume. Several pulmonary nodularities are identified within the right and left lung on axial image [id number] with the la rgest pulmonary nodule along the posterior segment right upper lobe measuring 1.4 cm on image 17. Lar gest nodule posterior segment left lower lobe measuring 0.6 cm on image 38. Calcified granuloma poste rior segment left lower lobe on image 28. Mild cardiomegaly. Coronary atherosclerosis. Intimal aortic arch calcification. Aortic valvular calci fications. Small hiatal hernia. Subclinical mediastinal lymph nodes. No definitive mediastinal or and/or hilar l ymphadenopathy. Abdomen and pelvis: The gallbladder was not visualized. No biliary duct dilatation. Anterior abdominal and pelvic mesh he rnia repair. Diverticulosis with no evidence for diverticulitis. Minimal atherosclerotic disease of the aortic bifurcation. Grossly the unopacified liver, pancreas, spleen and adrenal glands demonstrate to be within normal li mits, no significant focal lesions were identified. The kidneys demonstrate grossly unremarkable. There is no evidence for nephrolithiasis and/or hydro nephrosis. Grossly the unopacified stomach, small bowel and large bowel demonstrate to be within normal limits. There is diverticulosis within the sigmoid colon. The urinary bladder demonstrate to be within normal limits. The uterus is absent. There is no retroperitoneal lymphadenopathy. There is no evidence for ascites. Bones: The there is diffuse bony osteopenia. Degenerative changes throughout the thoracic and lumbar spine with posterior osteophyte complex along the lumbar spine. Small superior endplate compression deformity at T12. Diffuse degenerative disc disease T12-S1 posterior.Degenerative grade 1 spondyloli sthesis at L4/L5. IMPRESSION: Mild brain atrophy. No evidence for acute intracranial hemorrhage. No evidence for fracture or subluxation of the cervical spine. Several pulmonary nodularities are identified within the right and left lung with the largest pulmona ry nodule along the posterior segment right upper lobe measuring 1.4 cm. Differential diagnosis inclu destini metastatic disease and/or infectious process. Old granulomatous disease. Small hiatal hernia. Diverticulosis with no evidence for diverticulitis. Small superior endplate compression deformity at T12. Degenerative changes as described above. Degenerative grade 1 spondylolisthesis at L4/L5. Electronically signed by: Surya Beal MD 06/10/2021 10:48 PM [employer] [employer] Due to temporary technical issues with the PACS/Fluency reporting system, reports are being signed by the in house radiologists without review as a courtesy to insure prompt reporting. The interpreting radiologist is fully responsible for the content of the report.
[2021-06-12] MEDS ORDERED: ASPIRIN 81 MG CHEWABLE TABLET PO SCH (09:00)
== END 2021-06-11 15:06 | disposition home or self-care (01) ==
LOC: ER 19:38 → ERHOLD 23:05 → 2ND 23:52
PROVIDERS: ADMIT Family Medicine; ATTEND Family Medicine
DX: R55 Syncope and collapse (principal); R01.1 Cardiac murmur, unspecified; I35.0 Nonrheumatic aortic (valve) stenosis; I10 Essential (primary) hypertension; I95.9 Hypotension, unspecified; E87.6 Hypokalemia; E11.9 Type 2 diabetes mellitus without complications; R94.31 Abnormal electrocardiogram [ECG] [EKG]; F32.A Depression, unspecified; R74.01 Elevation of levels of liver transaminase levels; K76.0 Fatty (change of) liver, not elsewhere classified; E78.5 Hyperlipidemia, unspecified; K21.9 Gastro-esophageal reflux disease without esophagitis; K44.9 Diaphragmatic hernia without obstruction or gangrene; J30.2 Other seasonal allergic rhinitis; R91.8 Other nonspecific abnormal finding of lung field; M51.35 Other intervertebral disc degeneration, thoracolumbar region; Z86.16 Personal history of COVID-19; Z20.822 Contact with and (suspected) exposure to COVID-19; Z91.018 Allergy to other foods; Z91.041 Radiographic dye allergy status; Z90.49 Acquired absence of other specified parts of digestive tract; Z90.710 Acquired absence of both cervix and uterus
CPT/HCPCS: 36415; 70450; 71045; 71250; 72125; 76705; 80048; 80053; 80061; 80076; 81003; 81015; 82947; 83735; 83880; 84439; 84443; 84484; 85025; 85610; 87086; 87088; 93005; 93306; 94010; 96360; 99285; G0378; J1650; J3475; J7030; J7040; U0003